=== PATIENT | male | born 1945 | race Caucasian/White ===

== ENCOUNTER → 2018-01-07 | Outpatient (CLI) | payer MEDICARE, OTHER ==
[~2018-01-07] MED LIST: ASCO-201 PO; ASPI-715 PO; CALC-1033 PO; CALC600T72 PO; CEP500 PO; ENO100I; FERR27TA3 PO; GAB100 PO; GAB300 PO; GABAPENTIN; GLUC-307 PO; HYDR-3503 PO; IBU600 PO; IRO150 PO; KET10 PO; LOR5 PO; METO200T33 PO; MULT-820 PO; ONDA4TAB97 PO; PER PO; TAMS0.4C25 PO; TOPI50TA99 PO; TRAMADOL; VITA200C39 PO; VITE400 PO; WAR5 PO; WAR75 PO; [UNRECOGNIZED DRUG - CODE] PO; [UNRECOGNIZED DRUG - OTHER] PO
== END ==
LOC: LAB 08:00
PROVIDERS: ATTEND Physician Assistant Medical
DX: R19.7 Diarrhea, unspecified (principal)
CPT/HCPCS: 82274; 87045